=== PATIENT | male | born 1995 | race African-American/Black ===

== ENCOUNTER 2021-03-17 15:25 | Emergency (ER) | payer SELFPAY ==
[~2021-03-17] VITALS: Ht 180.3 cm; Wt 73.0 kg
[2021-03-17 15:30] VITALS: BP 130/103
[2021-03-17] MEDS ORDERED: OLANZAPINE 10 MG/VIAL IM ONE (16:00)
== END 2021-03-17 18:17 | disposition left against medical advice (07) ==
LOC: ER 15:25
DX: F22 Delusional disorders (principal); F12.10 Cannabis abuse, uncomplicated
CPT/HCPCS: 96372; 99283; J3490

== ENCOUNTER 2021-03-18 02:54 | Emergency (ER) | payer MEDICAID ==
[~2021-03-18] VITALS: Ht 177.8 cm; Wt 77.0 kg
[2021-03-18 02:58] VITALS: BP 172/80
[2021-03-18] MEDS ORDERED: QUETIAPINE FUMARATE 50MG TABLET PO SCH (03:15)
[2021-03-18] MEDS ORDERED: LORAZEPAM 1MG TABLET PO ONE (03:45)
[2021-03-18 03:56] LABS: BASOPHILS % 0.5 % (0.0-2.0); CLARITY URINE CLEAR (CLEAR); COLOR URINE YELLOW (YELLOW); EOSINOPHILS % 0.3 % (0.0-5.0); HEMATOCRIT. 40.8 % (42.0-52.0); HEMOGLOBIN. 14.1 g/dL (14.0-18.0); KETONES URINE TRACE (NEGATIVE); LEUKOCYTE ESTERASE URINE NEGATIVE (NEGATIVE); LYMPHOCYTES % 25.8 % (20.0-50.0); MEAN CORPUSCULAR HEMOGLOBIN 29.1 pg (28.0-32.0); MEAN CORPUSCULAR VOLUME 84.3 fL (80.0-94.0); MONOCYTES % 10.4 % (2.0-8.0); NITRITE URINE NEGATIVE (NEGATIVE); OCCULT BLOOD URINE NEGATIVE (NEGATIVE); PLATELET 306 x1000/uL (130-400); PROTEIN URINE NEGATIVE (NEGATIVE); RED BLOOD CELL COUNT 4.83 mill/uL (4.7-6.1); RED CELL DISTRIBUTION WIDTH 15.1 % (11.6-14.6); UROBILINOGEN URINE 0.2 E.U./dL (0.2-1.0)
[2021-03-18 04:06] LABS: CHLORIDE 107 mEq/L (98-107)
[2021-03-18 04:10] LABS: ETHANOL BLOOD < 10 mg/dL
[2021-03-18 04:27] LABS: *AMPHETAMINES SCREEN URINE PRESUMTIVE POSITIVE (NEGATIVE); *BARBITURATES SCREEN URINE NEGATIVE (NEGATIVE); *BENZODIAZEPINES SCREEN URINE NEGATIVE (NEGATIVE); *COCAINE SCREEN URINE NEGATIVE (NEGATIVE); CANNABINOID URINE SCREEN NEGATIVE (NEGATIVE); METHADONE URINE SCREEN NEGATIVE (NEGATIVE); OPIATES URINE SCREEN NEGATIVE (NEGATIVE); PHENCYCLIDINE URINE SCREEN NEGATIVE (NEGATIVE)
== END 2021-03-18 05:58 | disposition home or self-care (01) ==
LOC: ER 02:54
DX: F15.10 Other stimulant abuse, uncomplicated (principal); F16.10 Hallucinogen abuse, uncomplicated; F99 Mental disorder, not otherwise specified; F12.10 Cannabis abuse, uncomplicated; R44.0 Auditory hallucinations; Z91.51 Personal history of suicidal behavior; Z20.822 Contact with and (suspected) exposure to COVID-19
CPT/HCPCS: 36415; 80053; 80305; 80307; 80320; 80329; 81003; 85025; 87426; 99283; G0480